=== PATIENT | female | born 1985 | race American Indian/Alaskan Native ===

== ENCOUNTER 2020-06-06 21:09 | Emergency (ER) | payer MEDICARE, MEDICAID ==
[2020-06-06 21:59] VITALS: BP 144/85
[2020-06-06 22:49] LABS: Bilirubin,Urine NEG (Negative); Blood,Urine NEG (Negative); Color,Urine Yellow (Yellow); Mucus,Urine 2+ /HPF
[2020-06-06 22:54] LABS: HCG Qualitative,Urine Negative (Negative)
[2020-06-06 22:55] LABS: Basophils # (Auto) 0.1 K/mm3 (0.0-0.1); Basophils % (Auto) 0.7 % (0.0-1.8); Eosinophils # (Auto) 0.5 K/mm3 (0.0-0.4); Hematocrit 35.4 % (30.3-42.9); Hemoglobin 11.1 gm/dl (10.1-14.3); Lymphocytes % (Auto) 30.5 % (13.4-35.0); Mean Corpuscular HGB Conc 31 % (30-34); Mean Corpuscular Volume 75 fl (79-97); Monocytes # (Auto) 0.7 K/mm3 (0.0-0.8); Monocytes % (Auto) 6.9 % (0.0-7.3); Platelet Count 323 K/mm3 (140-440)
[2020-06-06 23:06] LABS: Red Cell Distribution Width 20.9 % (13.2-15.2)
[2020-06-06 23:19] LABS: Alanine Aminotransferase 10 units/L (7-56); Albumin 3.9 g/dL (3.9-5); Blood Urea Nitrogen 9 mg/dL (7-17); Calcium 8.7 mg/dL (8.4-10.2); Hemolysis Index 10
[2020-06-06 23:20] LABS: BUN/Creatinine Ratio 13
--- NOTE | 2020-06-06 23:26 | Emergency Department Report ---
ED Abdominal Pain HPI - General Chief Complaint: Abdominal Pain Stated Complaint: ABD PAIN Time Seen by Provider: 06/06/20 22:00 Source: patient Mode of arrival: Ambulatory Limitations: No Limitations - History of Present Illness Initial Comments: Patient is a 34-year-old female presents emergency room lower abdominal pain that began 2 days ago. She denies any fever, nausea, vomiting, diarrhea, hematochezia, hematemesis, melena, urinary symptoms, abnormal vaginal discharge. She states that she has been having normal bowel movements. She has a past medical history of MS, hypertension, optic neuritis. She has an allergy to steroids and neuromuscular blockers. - Related Data Home Medications Medication Instructions Recorded Confirmed Last Taken Chlorzoxazone 500 mg PRN 06/04/14 06/04/14 06/03/14 Piroxicam (Nf) [Feldene] 10 mg PO QDAY 06/04/14 06/04/14 06/03/14 acetaZOLAMIDE ER [Diamox Sequels] 500 mg PO 06/04/14 06/04/14 06/03/14 Previous Rx's Medication Instructions Recorded Last Taken Type Acetaminophen/Codeine 1 tab PO Q6H PRN #20 tab 06/05/14 Unknown Rx [Acetaminophen-Codeine #3 TAB] Sulfamethoxazole/Trimethoprim 1 each PO BID #14 tablet 06/05/14 Unknown Rx [Bactrim Ds] Naproxen [EC-Naprosyn] 500 mg PO BID PRN #20 tablet. 06/06/20 Unknown Rx Phenazopyridine [Pyridium] 100 mg PO TID #9 tab 06/06/20 Unknown Rx cephALEXin [Keflex] 500 mg PO BID 7 Days #14 capsule 06/06/20 Unknown Rx Allergies Allergy/AdvReac Type Severity Reaction Status Date / Time Neuromuscular Blockers, Allergy Seizure Verified 06/04/14 22:45 Steroidal [Steroidal Neuromuscular Blockers] ED Review of Systems ROS: Stated complaint: ABD PAIN Other details as noted in HPI Comment: All other systems reviewed and negative ED Past Medical Hx - Past Medical History Hx Seizures: Yes Additional medical history: Optic Neuritis. Multiple scerlosis. glacoma. spinal stenosis - Surgical History Additional Surgical History: sinus surgery 2004, D & C-2009 rectal surgery as a child - Social History Smoking Status: Never Smoker Substance Use Type: None - Medications Home Medications: Home Medications Medication Instructions Recorded Confirmed Last Taken Type Chlorzoxazone 500 mg PRN 06/04/14 06/04/14 06/03/14 History Piroxicam (Nf) [Feldene] 10 mg PO QDAY 06/04/14 06/04/14 06/03/14 History acetaZOLAMIDE ER [Diamox Sequels] 500 mg PO 06/04/14 06/04/14 06/03/14 History Acetaminophen/Codeine 1 tab PO Q6H PRN #20 tab 06/05/14 Unknown Rx [Acetaminophen-Codeine #3 TAB] Sulfamethoxazole/Trimethoprim 1 each PO BID #14 tablet 06/05/14 Unknown Rx [Bactrim Ds] Naproxen [EC-Naprosyn] 500 mg PO BID PRN #20 tablet. 06/06/20 Unknown Rx Phenazopyridine [Pyridium] 100 mg PO TID #9 tab 06/06/20 Unknown Rx cephALEXin [Keflex] 500 mg PO BID 7 Days #14 capsule 06/06/20 Unknown Rx ED Physical Exam - General Limitations: No Limitations General appearance: alert, in no apparent distress - Head Head exam: Present: atraumatic, normocephalic - Eye Eye exam: Present: normal appearance - ENT ENT exam: Present: mucous membranes moist - Respiratory Respiratory exam: Present: normal lung sounds bilaterally. Absent: respiratory distress, wheezes, rales, rhonchi, stridor, chest wall tenderness, accessory muscle use, decreased breath sounds, prolonged expiratory - Cardiovascular Cardiovascular Exam: Present: regular rate, normal rhythm, normal heart sounds. Absent: systolic murmur, diastolic murmur, rubs, gallop - GI/Abdominal GI/Abdominal exam: Present: soft, normal bowel sounds. Absent: distended, tenderness, guarding, rebound, rigid - Neurological Exam Neurological exam: Present: alert, oriented X3 - Psychiatric Psychiatric exam: Present: normal affect, normal mood - Skin Skin exam: Present: warm, dry, intact ED Course Vital Signs 06/06/20 21:52 Temperature 98.8 F Pulse Rate 70 Respiratory 18 Rate Blood Pressure 144/85 O2 Sat by Pulse 100 Oximetry ED Medical Decision Making - Lab Data Result diagrams: 06/06/20 22:15 06/06/20 22:15 Lab Results 06/06/20 06/06/20 06/06/20 Range/Units 22:15 22:15 22:28 WBC 10.0 (4.5-11.0) K/mm3 RBC 4.70 (3.65-5.03) M/mm3 Hgb 11.1 (10.1-14.3) gm/dl Hct 35.4 (30.3-42.9) % MCV 75 L (79-97) fl MCH 24 L (28-32) pg MCHC 31 (30-34) % RDW 20.9 H (13.2-15.2) % Plt Count 323 (140-440) K/mm3 Lymph % (Auto) 30.5 (13.4-35.0) % [place] % (Auto) 6.9 (0.0-7.3) % Eos % (Auto) 5.0 H (0.0-4.3) % Baso % (Auto) 0.7 (0.0-1.8) % Lymph # (Auto) 3.0 (1.2-5.4) K/mm3 [place] # (Auto) 0.7 (0.0-0.8) K/mm3 Eos # (Auto) 0.5 H (0.0-0.4) K/mm3 Baso # (Auto) 0.1 (0.0-0.1) K/mm3 Seg Neutrophils % 56.9 (40.0-70.0) % Seg Neutrophils # 5.7 (1.8-7.7) K/mm3 Sodium 138 (137-145) mmol/L Potassium 4.0 (3.6-5.0) mmol/L Chloride 103.3 (98-107) mmol/L Carbon Dioxide 26 (22-30) mmol/L Anion Gap 13 mmol/L BUN 9 (7-17) mg/dL Creatinine 0.7 (0.6-1.2) mg/dL Estimated GFR > 60 ml/min BUN/Creatinine Ratio 13 % Glucose 85 (65-100) mg/dL Calcium 8.7 (8.4-10.2) mg/dL Total Bilirubin < 0.20 (0.1-1.2) mg/dL AST 12 (5-40) units/L ALT 10 (7-56) units/L Alkaline Phosphatase 94 (35-129) units/L Total Protein 7.6 (6.3-8.2) g/dL Albumin 3.9 (3.9-5) g/dL Albumin/Globulin Ratio 1.1 % Lipase 30 (13-60) units/L Urine Color Yellow (Yellow) Urine Turbidity Slightly-cloudy (Clear) Urine pH 6.0 (5.0-7.0) Ur Specific [place] 1.024 (1.003-1.030) Urine Protein 30 mg/dl (Negative) mg/dL Urine Glucose (UA) Neg (Negative) mg/dL Urine Ketones Neg (Negative) mg/dL Urine Blood Neg (Negative) Urine Nitrite Neg (Negative) Urine Bilirubin Neg (Negative) Urine Urobilinogen 4.0 (<2.0) mg/dL Ur Leukocyte Esterase Sm (Negative) Urine WBC (Auto) 17.0 H (0.0-6.0) /HPF Urine RBC (Auto) 4.0 (0.0-6.0) /HPF U Epithel Cells (Auto) 5.0 (0-13.0) /HPF Urine Mucus 2+ /HPF Urine HCG, Qual Negative (Negative) - Medical Decision Making Patient is a 34-year-old female presents emergency room lower abdominal pain that began 2 days ago. She denies any fever, nausea, vomiting, diarrhea, hematochezia, hematemesis, melena, urinary symptoms, abnormal vaginal discharge. She states that she has been having normal bowel movements. She has a past medical history of MS, hypertension, optic neuritis. She has an allergy to steroids and neuromuscular blockers. VSS. No abdominal tenderness exam, no guarding, no rebound, no rigidity, normal bowel sounds, no peritoneal signs. Labs are normal. Urine is negative. UA shows evidence of UTI. symptoms likely related to UTI, do not suspect emergent intraabdominal pathology at this time, no abdominal tenderness on exam, no leukocytosis no vomiting, no diarrhea. She has no obstructive symptoms. Discussed results with patient answered questions. Patient given prescription for Keflex, Pyridium, naproxen. Advised patient Please take medication as prescribed. Increase your water intake. Medication may turn your urine orange, this is normal. Follow-up with a primary care doctor for reexamination. Return to emergency room for any worsening symptoms. Critical care attestation.: If time is entered above; I have spent that time in minutes in the direct care of this critically ill patient, excluding procedure time. ED Disposition Clinical Impression: Abdominal pain Qualifiers: Abdominal location: left lower quadrant Qualified Code(s): R10.32 - Left lower quadrant pain UTI (urinary tract infection) Qualifiers: Urinary tract infection type: acute cystitis Hematuria presence: without hematuria Qualified Code(s): N30.00 - Acute cystitis without hematuria Disposition: TO HOME OR SELFCARE Is pt being admited?: No Does the pt Need Aspirin: No Condition: Stable Instructions: Abdominal Pain, Adult, Urinary Tract Infection, Adult, Abdominal Pain (ED) Additional Instructions: Please take medication as prescribed. Increase your water intake. Medication may turn your urine orange, this is normal. Follow-up with a primary care doctor for reexamination. Return to emergency room for any worsening symptoms. Prescriptions: Naproxen [EC-Naprosyn] 500 mg PO BID PRN #20 tablet.dr SOUZA Reason: pain cephALEXin [Keflex] 500 mg PO BID 7 Days #14 capsule Phenazopyridine [Pyridium] 100 mg PO TID #9 tab Referrals: PRIMARY CARE, [Primary Care Provider] - 2-3 Days Time of Disposition: 23:26 Print Language: [place] CITIZ[place]
== END 2020-06-06 23:30 | disposition home or self-care (01) ==
LOC: ED 21:09
DX: N39.0 Urinary tract infection, site not specified (principal); R10.30 Lower abdominal pain, unspecified; R56.9 Unspecified convulsions; Z98.890 Other specified postprocedural states; Z79.899 Other long term (current) drug therapy; Z88.8 Allergy status to other drugs, medicaments and biological substances
CPT/HCPCS: 36415; 80053; 81001; 81025; 83690; 85025; 87086